=== PATIENT | male | born 1980 | race American Indian/Alaskan Native ===

== ENCOUNTER 2017-02-28 13:02 | Inpatient (IN) | payer OTHER ==
[2017-02-28 13:43] LABS: Basophils % (Auto) 0.6 % (0.0-1.8); Eosinophils % (Auto) 0.8 % (0.0-4.3); Hematocrit 41.7 % (35.5-45.6); Hemoglobin 13.5 gm/dl (11.8-15.2); Mean Corpuscular HGB Conc 32 % (32-34); Mean Corpuscular Hemoglobin 27 pg (28-32); Mean Corpuscular Volume 82 fl (84-94); Platelet Count 213 K/mm3 (140-440); Red Blood Count 5.06 M/mm3 (3.65-5.03); Red Cell Distribution Width 13.6 % (13.2-15.2); White Blood Count 10.5 K/mm3 (4.5-11.0)
[2017-02-28 14:04] LABS: Anion Gap 16 mmol/L; BUN/Creatinine Ratio 12; Blood Urea Nitrogen 11 mg/dL (9-20); Calcium 8.8 mg/dL (8.4-10.2); Carbon Dioxide 24 mmol/L (22-30); Glucose 89 mg/dL (75-100); Potassium 4.1 mmol/L (3.6-5.0); Sodium 141 mmol/L (137-145)
[2017-02-28] MEDS ORDERED: DUONEB *Not for PRN Use IH ONE (15:25)
--- NOTE | 2017-02-28 15:26 | XRay Report ---
CHEST ONE VIEW INDICATION: Chest pain. COMPARISON: None similar at this institution. FINDINGS: Portable, single, frontal chest radiograph demonstrates normal cardiomediastinal silhouette. Clear lungs. Unremarkable bones. CONCLUSION: No acute disease in the chest. Thank you for the opportunity to participate in this patient's care.
--- NOTE | 2017-02-28 15:40 | Emergency Department Report ---
ED Chest Pain HPI - General Chief Complaint: Chest Pain Stated Complaint: CHEST PRESSURE Time Seen by Provider: 02/28/17 15:10 Source: patient Mode of arrival: Ambulatory Limitations: No Limitations - History of Present Illness Initial Comments: This is a 36-year-old male presents to the emergency department from home with complaint of a three-day history of left sided chest pain with some radiation towards the back. The pain worsens when he tries to take deep respirations. He denies any fever, nausea, vomiting or diaphoresis. He has not a tobacco smoker regularly but says that he did "bum a few smokes"recently off some friends. He denies any illicit drug use. No recent travel or sick contacts at home. He does not have any primary care physician. He denies any past medical history. He has not taken anything for his symptoms prior presentation. Severity scale (0 -10): 4 - Related Data Allergies Allergy/AdvReac Type Severity Reaction Status Date / Time No Known Allergies Allergy Unverified 02/28/17 13:11 Heart Score - HEART Score History: Slightly suspicious EKG: Non-specific Age: < 45 Risk factors: No known risk factors Troponin: < normal limit HEART Score: 1 - Critical Actions Critical Actions: 0-3 pts:0.9-1.7%risk of adverse cardiac event.Candidate for discharge ED Review of Systems ROS: Stated complaint: CHEST PRESSURE Other details as noted in HPI Comment: All other systems reviewed and negative Constitutional: denies: chills, fever Eyes: denies: eye pain, eye discharge, vision change ENT: denies: ear pain, throat pain Respiratory: denies: cough, wheezing Cardiovascular: chest pain. denies: palpitations Gastrointestinal: denies: abdominal pain, nausea, diarrhea Genitourinary: denies: urgency, dysuria Musculoskeletal: back pain. denies: arthralgia Skin: denies: rash, lesions Neurological: denies: headache, weakness, paresthesias ED Past Medical Hx - Past Medical History Hx Arthritis: Yes - Surgical History Past Surgical History?: No - Social History Smoking Status: Current Every Day Smoker Substance Use Type: None ED Physical Exam - General Limitations: No Limitations - Other Other exam information: GENERAL: The patient is well-developed well-nourished. HENT: Normocephalic. Atraumatic. Patient has moist mucous membranes. EYES: Extraocular motions are intact. Pupils equal reactive to light bilaterally. NECK: Supple. Trachea is midline. CHEST/LUNGS: Clear to auscultation. There is no respiratory distress noted. Chest pain is not reproducible to palpation of the chest wall. He appears to have increased chest pain with inspiration. HEART/CARDIOVASCULAR: Regular. There is no tachycardia. There is no gallop rub or murmur. ABDOMEN: Abdomen is soft, nontender. Patient has normal bowel sounds. There is no abdominal distention. SKIN: Skin is warm and dry. NEURO: The patient is awake, alert, and oriented. The patient is cooperative. The patient has no focal neurologic deficits. The patient has normal speech. MUSCULOSKELETAL: There is no tenderness or deformity. There is no limitation range of motion. There is no evidence of acute injury. ED Course Vital Signs 02/28/17 02/28/17 02/28/17 13:11 15:28 15:35 Temperature 98.5 F Pulse Rate 86 75 Respiratory 18 18 Rate Blood Pressure 104/69 O2 Sat by Pulse 100 99 Oximetry 02/28/17 02/28/17 02/28/17 16:00 17:26 18:00 Temperature Pulse Rate 79 71 72 Respiratory 13 23 8 L Rate Blood Pressure 109/68 106/73 112/80 O2 Sat by Pulse 99 Oximetry - Consultations Consultation #1: The repeat EKG showed some concern for ST elevation in lead V3 and some more acute T waves then in the previous EKG. I spoke to the head waitress, Dr. Mills, who says that appears more like J-point elevation that would be consistent with a pericarditis or early repolarization and does not require cardiac catheterization. He recommended CT angiography of the chest, despite the negative d-dimer, and agrees with plan for admission. 02/28/17 18:11 VETO score - Veto Score Age > 65: (0) No Aspirin use within the Past 7 Days: (0) No 3 or more CAD Risk Factors: (0) No 2 or more Angina events in past 24 hrs: (1) Yes Known CAD with more than 50% Stenosis: (0) No Elevated Cardiac Markers: (0) No ST Deviation Greater than 0.5mm: (1) Yes VETO Score: 2 ED Medical Decision Making - Lab Data Result diagrams: 02/28/17 13:25 02/28/17 13:25 - EKG Data -: EKG Interpreted by Me EKG shows normal: sinus rhythm, axis, intervals, QRS complexes, ST-T waves ( nonspecific mild ST elevation in the lateral leads most likely consistent with early repolarization.) Rate: normal - EKG Data When compared to previous EKG there are: previous EKG unavailable Interpretation: other (there is some nonspecific ST elevation to the lateral leads that may be consistent with early repolarization) Repeat EKG shows sinus rhythm, normal axis, rate of 69. There is some ST elevation that is concave up in leads V3 and slightly in the other lateral leads 02/28/17 18:13 - Radiology Data Radiology results: image reviewed interpreted by me: Chest x-ray does not show any acute process. There are no pleural effusions, obvious pneumonia and there is no pneumothorax. - Medical Decision Making 36-year-old male presents with a 2 to three-day history of some left-sided chest discomfort that radiates towards the back. He has no personal or family risk factors for coronary artery disease. EKG originally appeared consistent with some early repolarization but could also be consistent with a pericarditis. Heart and lung sounds are normal auscultation. First troponins negative 2. D-dimer was negative. Repeat EKG was concerning for evolution of ischemia as there was some increased ST elevation in the lateral leads, especially in V3, but no reciprocal depressions. I spoke to the head waitress who did not feel that this was a ST elevation MD but more consistent with a J-point elevation. The patient will be admitted to hospital for further evaluation and cardiology consult and has just completed a CT angiography of the chest. - Differential Diagnosis MD, pleurisy, PE, costochondritis, pericarditis Critical Care Time: No Critical care attestation.: If time is entered above; I have spent that time in minutes in the direct care of this critically ill patient, excluding procedure time. ED Disposition Clinical Impression: Abnormal EKG Chest pain Qualifiers: Chest pain type: unspecified Qualified Code(s): R07.9 - Chest pain, unspecified Disposition: OP ADMIT IP TO THIS HOSP Is pt being admited?: Yes Condition: Stable Instructions: Chest Pain (ED) Referrals: PRIMARY CARE, [Primary Care Provider] - 3-5 Days Time of Disposition: 19:43
[2017-02-28] MEDS ORDERED: TORADOL IM ONE (17:33)
[2017-02-28] MEDS ORDERED: BABY ASPIRIN PO ONE (18:13)
--- NOTE | 2017-02-28 19:49 | Cat Scan Report ---
FINAL REPORT PROCEDURE: CT ANGIO CHEST TECHNIQUE: Computerized tomographic angiography of the chest was performed after the IV injection of iodinated nonionic contrast including image processing. The image data was postprocessed using 2-dimensional multiplanar reformatted (MPR) and 3-dimensional (MIP and/or volume rendered) techniques. HISTORY: Chest pain COMPARISON: No prior studies are available for comparison. FINDINGS: Heart and pericardium: Normal. Thoracic aorta: Normal. Pulmonary vasculature: Normal. Lymph nodes: No enlarged thoracic lymph nodes. Lungs: Normal. Pleural space: No effusion, thickening, or pneumothorax. Musculoskeletal structures: No significant abnormality. Upper abdominal structures: No significant abnormality. IMPRESSION: Normal Examination
--- NOTE | 2017-02-28 20:37 | Consultation ---
History of Present Illness Consult date: 02/28/17 Consult reason: chest pain History of present illness: 36-year-old man with no prior cardiac history. He presented to the emergency room with 3 days of intermittent chest pain. He describes left upper chest pain which is not exertional, but has a pleuritic and positional component. No shortness of breath and no other constitutional symptoms. Despite his chest pain in the emergency room he otherwise looks comfortable. The ECG was abnormal, demonstrating sinus rhythm with diffuse J-point elevation , morphology of early repolarization, versus pericarditis. Cardiac isoenzymes were normal 2. CT scan of the chest was normal. He was administered with nonsteroidal agents, has obtained some relief. Past History Past Medical History: No medical history Medications and Allergies Allergies Allergy/AdvReac Type Severity Reaction Status Date / Time No Known Allergies Allergy Unverified 02/28/17 13:11 Home Medications Medication Instructions Recorded Confirmed Last Taken Type No Known Home Medications [No 02/28/17 02/28/17 Unknown History Reported Home Medications] Review of Systems Cardiovascular: chest pain, no orthopnea, no palpitations, no rapid/irregular heart beat, no edema, no syncope, no lightheadedness, no shortness of breath Physical Examination Vital Signs Temp Pulse Resp BP Pulse Ox 98.5 F 86 18 104/69 100 02/28/17 13:11 02/28/17 13:11 02/28/17 13:11 02/28/17 13:11 02/28/17 13:11 General appearance: no acute distress HEENT: Positive: PERRL Neck: Positive: neck supple Cardiac: Positive: Reg Rate and Rhythm Lungs: Positive: clear to auscultation Neuro: Positive: Grossly Intact Abdomen: Positive: Soft Male genitourinary: Positive: deferred Skin: Positive: Clear Extremities: Absent: edema Results 02/28/17 13:25 02/28/17 13:25 CBC 02/28/17 Range/Units 13:25 WBC 10.5 (4.5-11.0) K/mm3 RBC 5.06 H (3.65-5.03) M/mm3 Hgb 13.5 (11.8-15.2) gm/dl Hct 41.7 (35.5-45.6) % Plt Count 213 (140-440) K/mm3 Lymph # 1.6 (1.2-5.4) K/mm3 Nobles # 0.9 H (0.0-0.8) K/mm3 Eos # 0.1 (0.0-0.4) K/mm3 Baso # 0.1 (0.0-0.1) K/mm3 Comprehensive Metabolic Panel 02/28/17 Range/Units 13:25 Sodium 141 (137-145) mmol/L Potassium 4.1 (3.6-5.0) mmol/L Chloride 105.0 (98-107) mmol/L Carbon Dioxide 24 (22-30) mmol/L BUN 11 (9-20) mg/dL Creatinine 0.9 (0.8-1.5) mg/dL Glucose 89 (75-100) mg/dL Calcium 8.8 (8.4-10.2) mg/dL EKG interpretations - Telemetry EKG Rhythm: Sinus Rhythm Assessment and Plan - Patient Problems (1) Chest pain Current Visit: Yes Status: Acute Qualifiers: Chest pain type: unspecified Ischemic chest pain type: I Qualified Code(s ): R07.9 - Chest pain, unspecified Plan to address problem: Patient's chest pain is atypical, ECG reveals diffuse J-point elevation. Differential diagnosis includes costochondritis, musculoskeletal chest pain, versus pericarditis.
[2017-02-28] MEDS ORDERED: DULCOLAX PR PRN (21:46)
[2017-02-28] MEDS ORDERED: TYLENOL PO PRN (21:46)
[2017-02-28] MEDS ORDERED: ZOFRAN IV PRN (21:46)
[2017-02-28] MEDS ORDERED: MILK OF MAGNESIA PO PRN (21:46)
--- NOTE | 2017-02-28 21:46 | History and Physical Report ---
History of Present Illness Date of examination: 02/28/17 Date of admission: 02/28/2017 Chief complaint: Chief complaint: Chest pain which is intermittent for 3 days F F History of present illness: History of present illness: 36-year-old from with no significant past medical history presents with a history of retrosternal chest pain with radiation to his back. Sharp in nature. Pain is 8/10. There is no shortness of breath, no palpitations or diaphoresis. No history of cardiac stents or cath or stress test. No exacerbating or relieving factors. Smokes a few cigarettes every day. No drug abuse. No recent travel. No exertional dyspnea. Past History Past Medical History: No medical history Past Surgical History: No surgical history Social history: lives with family, smoking (5 cigarettes a day), full code. denies: alcohol abuse Family history: hypertension Medications and Allergies Allergies Allergy/AdvReac Type Severity Reaction Status Date / Time No Known Allergies Allergy Unverified 02/28/17 13:11 Home Medications Medication Instructions Recorded Confirmed Last Taken Type No Known Home Medications [No 02/28/17 02/28/17 Unknown History Reported Home Medications] Active Meds: Active Medications Ketorolac Tromethamine (Toradol) 30 mg IV Q8H WILFRED Stop: 03/02/17 00:01 Review of Systems All systems: negative Constitutional: no weight loss, no weight gain, no fever, no chills, no sweats, no night sweats Ears, nose, mouth and throat: no dysphagia, no hoarseness, no sore throat, no swelling in mouth Cardiovascular: chest pain, no orthopnea, no palpitations, no rapid/irregular heart beat, no edema, no syncope, no lightheadedness, no shortness of breath Respiratory: no cough, no cough with sputum, no excessive sputum, no hemoptysis , no shortness of breath, no dyspnea on exertion Gastrointestinal: no abdominal pain, no nausea, no vomiting, no diarrhea, no constipation, no change in bowel habits, no hematemesis Genitourinary Male: no dysuria, no hematuria, no flank pain, no discharge, no urinary frequency, no urinary hesitancy, no nocturia, no incontinence, no erectile dysfunction, no genital pain Rectal: no pain Musculoskeletal: no neck stiffness, no neck pain, no shooting arm pain, no arm numbness/tingling, no low back pain, no shooting leg pain, no leg numbness/ tingling, no redness of joints Integumentary: no rash, no pruritis, no redness, no sores, no wounds, no jaundice, no boils, no blisters Neurological: no seizures, no syncope, no tremors, no ataxia, no lack of coordination Psychiatric: no anxiety, no memory loss, no change in sleep habits, no sleep disturbances, no insomnia, no hypersomnia, no change in appetite, no change in libido, no suicidal ideation, no disorientation, no hallucinations Endocrine: no cold intolerance, no heat intolerance, no polyphagia, no excessive thirst, no polydipsia, no polyuria, no nocturia, no excessive sweating , no flushing, no weight change Hematologic/Lymphatic: no easy bruising, no easy bleeding Allergic/Immunologic: no urticaria, no allergic rhinitis, no wheezing Exam - Physical Exam Narrative exam: Lying comfortably in bed. Cheerful - Constitutional Vitals: Temp Pulse Resp BP Pulse Ox 97.8 F 80 16 112/94 97 02/28/17 19:30 02/28/17 21:00 02/28/17 21:00 02/28/17 21:00 02/28/17 21:00 General appearance: Present: no acute distress, well-nourished - EENT Eyes: Present: PERRL ENT: hearing intact, clear oral mucosa - Neck Neck: Present: supple, normal ROM - Respiratory Respiratory effort: normal Respiratory: bilateral: CTA - Cardiovascular Heart rate: 76 Rhythm: regular Heart Sounds: Present: S1 & S2. Absent: rub, click - Extremities Extremities: no ischemia, pulses intact, pulses symmetrical, No edema Peripheral Pulses: within normal limits - Abdominal General gastrointestinal: Present: soft, non-tender, non-distended, normal bowel sounds Male genitourinary: Present: normal - Rectal Rectal Exam: deferred - Integumentary Integumentary: Present: clear, warm, dry - Musculoskeletal Musculoskeletal: gait normal, strength equal bilaterally - Psychiatric Psychiatric: appropriate mood/affect, intact judgment & insight - Neurologic Neurologic: CNII-XII intact, moves all extremities - Allied Health Allied health notes reviewed: nursing, case management Results - Labs CBC & Chem 7: 02/28/17 13:25 02/28/17 13:25 Labs: Laboratory Last Values WBC 10.5 K/mm3 (4.5-11.0) 02/28/17 13:25 RBC 5.06 M/mm3 (3.65-5.03) H 02/28/17 13:25 Hgb 13.5 gm/dl (11.8-15.2) 02/28/17 13:25 Hct 41.7 % (35.5-45.6) 02/28/17 13:25 MCV 82 fl (84-94) L 02/28/17 13:25 MCH 27 pg (28-32) L 02/28/17 13:25 MCHC 32 % (32-34) 02/28/17 13:25 RDW 13.6 % (13.2-15.2) 02/28/17 13:25 Plt Count 213 K/mm3 (140-440) 02/28/17 13:25 Lymph % (Auto) 15.4 % (13.4-35.0) 02/28/17 13:25 Collin % (Auto) 8.6 % (0.0-7.3) H 02/28/17 13:25 Eos % (Auto) 0.8 % (0.0-4.3) 02/28/17 13:25 Baso % (Auto) 0.6 % (0.0-1.8) 02/28/17 13:25 Lymph # 1.6 K/mm3 (1.2-5.4) 02/28/17 13:25 Collin # 0.9 K/mm3 (0.0-0.8) H 02/28/17 13:25 Eos # 0.1 K/mm3 (0.0-0.4) 02/28/17 13:25 Baso # 0.1 K/mm3 (0.0-0.1) 02/28/17 13:25 Seg Neutrophils % 74.6 % (40.0-70.0) H 02/28/17 13:25 Seg Neutrophils # 7.9 K/mm3 (1.8-7.7) H 02/28/17 13:25 D-Dimer < 135.00 ng/mlDDU (0-234) 02/28/17 14:52 Sodium 141 mmol/L (137-145) 02/28/17 13:25 Potassium 4.1 mmol/L (3.6-5.0) 02/28/17 13:25 Chloride 105.0 mmol/L (98-107) 02/28/17 13:25 Carbon Dioxide 24 mmol/L (22-30) 02/28/17 13:25 Anion Gap 16 mmol/L 02/28/17 13:25 BUN 11 mg/dL (9-20) 02/28/17 13:25 Creatinine 0.9 mg/dL (0.8-1.5) 02/28/17 13:25 Estimated GFR > 60 ml/min 02/28/17 13:25 BUN/Creatinine Ratio 12 % 02/28/17 13:25 Glucose 89 mg/dL (75-100) 02/28/17 13:25 Calcium 8.8 mg/dL (8.4-10.2) 02/28/17 13:25 Troponin T < 0.010 ng/mL (0.00-0.029) 02/28/17 19:08 - Imaging and Cardiology EKG: report reviewed (J-point elevation in V1 to 6) Chest x-ray: report reviewed (NAF) CT scan - chest: report reviewed (CTA - neg for PE) Assessment and Plan Advance Directives: Yes (full code) VTE prophylaxis?: Chemical Plan of care discussed with patient/family: Yes - Patient Problems (1) Abnormal EKG Current Visit: Yes Status: Acute (2) Chest pain Current Visit: Yes Status: Acute Qualifiers: Chest pain type: unspecified Ischemic chest pain type: I Qualified Code(s ): R07.9 - Chest pain, unspecified Plan to address problem: Serial CE's and Lexiscan in AM DDx of costochondritis highly likely.Some chest wall tenderness present. (3) Costochondritis, acute Current Visit: Yes Status: Acute Plan to address problem: NSAIDs at discharge (4) DVT prophylaxis Current Visit: Yes Status: Acute Plan to address problem: On Lovenox 40 sq qd
[2017-02-28] MEDS ORDERED: PERCOCET 5/325 PO PRN (21:51)
[2017-02-28] MEDS ORDERED: DILAUDID IV PRN (21:51)
[2017-02-28] MEDS ORDERED: AMBIEN PO PRN (21:51)
[2017-02-28] MEDS ORDERED: LOVENOX SUB-Q SCH (22:00)
[2017-02-28] MEDS ORDERED: D5NS 1,000 ML IV SCH (22:00)
[2017-02-28] MEDS: PEPCID IV SCH (22:35)
[2017-03-01 07:24] LABS: Creatine Kinase MB 1.1 ng/mL (0.0-4.0)
[2017-03-01 07:25] LABS: Creatine Kinase 189 units/L (55-170)
[2017-03-01 07:26] LABS: Alanine Aminotransferase 9 units/L (7-56); Albumin 3.3 g/dL (3.9-5); Albumin/Globulin Ratio 1.1 %; Alkaline Phosphatase 74 units/L (35-129); Anion Gap 14 mmol/L; BUN/Creatinine Ratio 12; Blood Urea Nitrogen 12 mg/dL (9-20); Calcium 8.5 mg/dL (8.4-10.2); Carbon Dioxide 27 mmol/L (22-30); Chloride 104.9 mmol/L (98-107); Glucose 73 mg/dL (75-100); Potassium 4.2 mmol/L (3.6-5.0); Sodium 142 mmol/L (137-145); Total Protein 6.3 g/dL (6.3-8.2)
[2017-03-01] MEDS ORDERED: TORADOL IV SCH (08:00)
[2017-03-01] MEDS ORDERED: MOBIC PO SCH (10:00)
[2017-03-01] MEDS: PEPCID IV SCH (10:09)
--- NOTE | 2017-03-01 10:19 | Progress Note ---
Assessment and Plan Chest pain, atypical (differential diagnosis includes costochondritis versus musculoskeletal chest pain. Cardiac isoenzymes were normal 3. CT scan of the chest was normal. Abnormal ECG demonstrating sinus rhythm with diffuse J-point elevation, morphology of early repolarization. Plan: Stable cardiac loera. On discharge we will recommend Motrin 600mg q8hrs prn. Subjective Date of service: 03/01/17 Interval history: Patient reports he is feeling much better since his initial treatment in the ED. Objective Vital Signs Temp Pulse Resp BP BP Pulse Ox 03/01/17 09:24 20 03/01/17 08:24 75 113/74 98 03/01/17 04:35 97.8 F 59 L 18 100/68 100 02/28/17 23:38 97.8 F 68 20 108/67 02/28/17 22:51 88 23 112/94 100 02/28/17 22:41 84 25 H 112/94 99 02/28/17 22:31 89 16 112/94 100 02/28/17 22:21 91 H 26 H 121/75 100 02/28/17 22:11 85 9 L 121/75 100 02/28/17 22:10 97 H 16 121/75 100 02/28/17 22:00 87 22 121/75 100 02/28/17 21:51 89 25 H 112/94 100 - Physical Examination General: No Apparent Distress HEENT: Positive: PERRL Neck: Positive: neck supple Cardiac: Positive: Reg Rate and Rhythm Lungs: Positive: Decreased Breath Sounds Neuro: Positive: Grossly Intact Extremities: Absent: edema - Labs and Meds Cardiac Enzymes 03/01/17 03/01/17 Range/Units 06:35 06:35 AST 12 (5-40) units/L CK-MB (CK-2) 1.1 (0.0-4.0) ng/mL Comprehensive Metabolic Panel 03/01/17 Range/Units 06:35 Sodium 142 (137-145) mmol/L Potassium 4.2 (3.6-5.0) mmol/L Chloride 104.9 (98-107) mmol/L Carbon Dioxide 27 (22-30) mmol/L BUN 12 (9-20) mg/dL Creatinine 1.0 (0.8-1.5) mg/dL Glucose 73 L (75-100) mg/dL Calcium 8.5 (8.4-10.2) mg/dL AST 12 (5-40) units/L ALT 9 (7-56) units/L Alkaline Phosphatase 74 (35-129) units/L Total Protein 6.3 (6.3-8.2) g/dL Albumin 3.3 L (3.9-5) g/dL - Imaging and Cardiology EKG: report reviewed (J-point elevation in V1 to 6)
[2017-03-01 11:23] VITALS: BP 113/74
--- NOTE | 2017-03-01 12:24 | Discharge Summary ---
Providers - Providers Date of Admission: 02/28/17 21:46 Date of discharge: 03/01/17 Attending physician: VIDHI SANDOVAL Primary care physician: MUSCULOSKELETAL PHYSIOTHERAPIST Hospitalization Condition: Stable Pertinent studies: Chest x-ray showed no acute disease, chest CT was normal. Procedures: None Hospital course: Patient came in with retrosternal chest pain radiating to the back. Patient had abnormal EKG that showed J-point elevation. Serial cardiac enzymes were normal. Belt Sewer following patient stated no stress test indicated. Patient was discharged home on aspirin and advised to follow up with primary care physician within 3-5 days Disposition: DC-01 TO HOME OR SELFCARE Core Measure Documentation - Palliative Care Palliative Care/ Comfort Measures: Not Applicable - Core Measures Any of the following diagnoses?: none Exam - Constitutional Vitals: Temp Pulse Resp BP Pulse Ox 97.8 F 75 20 113/74 98 03/01/17 04:35 03/01/17 08:24 03/01/17 09:24 03/01/17 08:24 03/01/17 08:24 General appearance: Present: no acute distress, well-nourished - EENT Eyes: Present: PERRL ENT: hearing intact, clear oral mucosa - Neck Neck: Present: supple, normal ROM - Respiratory Respiratory effort: normal Respiratory: bilateral: CTA - Cardiovascular Heart Sounds: Present: S1 & S2. Absent: rub, click - Extremities Extremities: pulses symmetrical, No edema Peripheral Pulses: within normal limits - Abdominal General gastrointestinal: Present: soft, non-tender, non-distended, normal bowel sounds Male genitourinary: Present: normal - Integumentary Integumentary: Present: clear, warm, dry - Musculoskeletal Musculoskeletal: gait normal, strength equal bilaterally - Psychiatric Psychiatric: appropriate mood/affect, intact judgment & insight - Neurologic Neurologic: CNII-XII intact, moves all extremities Plan Activity: advance as tolerated Diet: low fat, low cholesterol Follow up with: PRIMARY CAREMD [Primary Care Provider] - 3-5 Days
== END 2017-03-01 14:11 | disposition home or self-care (01) | DRG 313 ==
LOC: ED 13:02 → 4A 21:46
PROVIDERS: ADMIT Internal Medicine; ATTEND Family Medicine
DX: R07.89 Other chest pain (principal); F17.200 Nicotine dependence, unspecified, uncomplicated; Z82.49 Family history of ischemic heart disease and other diseases of the circulatory system
CPT/HCPCS: 36415; 71010; 71275; 80048; 80053; 82550; 82553; 83036; 84484; 85025; 85379; 93005; 93010; J1650; J1885; J7042; Q9967